=== PATIENT | female | born 1940 | race Caucasian/White ===

== ENCOUNTER 2021-09-15 13:26 | Emergency (ER) | payer MEDICARE, BC ==
[~2021-09-15 13:26] MED LIST: ALDACTONE25 MG PO; AMIODARONE HCL100 MG PO; ASPIR 8181 MG PO; CEFTIN250 MG PO; ELIMITE 5% CREA60 GM TOP; ELIQUIS5 MG PO; GLUCOPHAGE1000 MG PO; LASIX40 MG PO; LEVAQUIN500 MG PO; LISINOPRIL5 MG PO; LOPRESSOR 25 MG25 MG PO; MELOXICAM15 MG PO; NEURONTIN 300300 MG PO; PROTONIX40 MG PO; SYNTHROID100 MCG PO; ULTRAM50 MG PO
== END 2021-09-15 13:48 | disposition left against medical advice (07) ==
LOC: ER1 13:26
DX: Z53.21 Procedure and treatment not carried out due to patient leaving prior to being seen by health care provider (principal)

== ENCOUNTER 2021-10-11 21:34 | Emergency (ER) | payer MEDICARE, BC | END 2021-10-12 00:21 | disposition left against medical advice (07) | LOC: ER1 21:34 | PROVIDERS: Student in an Organized Health Care Education/Training Program | DX: R39.198 Other difficulties with micturition (principal); E11.9 Type 2 diabetes mellitus without complications | CPT/HCPCS: 80053; 83690; 99281 ==